=== PATIENT | male | born 1950 | race Caucasian/White ===

== ENCOUNTER → 2022-08-12 | Day surgery (SDC) | payer MEDICARE, OTHER ==
[~2022-08-12] MED LIST: Iopamidol-M 300 61% 15 ML VIAL ONE; Sodium Bicarbonate 2.5 MEQ/5 ML VIAL ONE
== END ==
LOC: CSHRAD 08:38
PROVIDERS: ATTEND Neurological Surgery
DX: M54.50 Low back pain, unspecified (principal); R27.0 Ataxia, unspecified; M21.372 Foot drop, left foot; M21.371 Foot drop, right foot; I10 Essential (primary) hypertension; E11.9 Type 2 diabetes mellitus without complications; G89.29 Other chronic pain
CPT/HCPCS: 62302; 62304; 72126; 72132; Q9967